=== PATIENT | male | born 1980 | race Caucasian/White ===

== ENCOUNTER 2017-07-19 02:49 | Emergency (ER) | payer BC ==
[~2017-07-19] VITALS: Ht 177.8 cm; Wt 90.9 kg
[2017-07-19 03:13] VITALS: BP 117/72
[2017-07-19] MEDS ORDERED: ibuprofen tablet 400 MG TABLET PO ONE (03:40)
[2017-07-19] MEDS ORDERED: HYDR-569 PO (04:33)
[2017-07-19] MEDS ORDERED: ONDA8TAB9 PO (04:33)
[2017-07-19] MEDS ORDERED: SULF1TAB49 PO (04:33)
[2017-07-19] MEDS ORDERED: CEPH500C5 PO (04:33)
== END 2017-07-19 05:12 | disposition home or self-care (01) ==
LOC: ER 02:50
DX: S91.311A Laceration without foreign body, right foot, initial encounter (principal); L03.115 Cellulitis of right lower limb; Z79.899 Other long term (current) drug therapy; W26.8XXA Contact with other sharp object(s), not elsewhere classified, initial encounter; Y93.89 Activity, other specified; Y92.89 Other specified places as the place of occurrence of the external cause; Y99.8 Other external cause status
CPT/HCPCS: 73630; 99284